=== PATIENT | female | born 1935 | race African-American/Black ===

== ENCOUNTER 2017-04-01 17:07 | Emergency (ER) | payer MEDICARE, OTHER ==
[~2017-04-01 17:07] MED LIST: BLOOMIS XX; CHLO25TA24 PO; KCL20 PO; Z.0.NO CURRENT MEDS; [UNRECOGNIZED DRUG - CODE] XX
[2017-04-01] MEDS ORDERED: DEXTROSE 50% IN WATER 50 ML SYRINGE IV ONE (17:08)
[2017-04-01] MEDS ORDERED: EPINEPHrine HCL (1:10,000) 1 MG/10 ML SYRINGE IV ONE (17:08)
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
== END 2017-04-01 23:42 | disposition expired ==
LOC: NEPE 17:07
DX: I46.9 Cardiac arrest, cause unspecified (principal); M19.90 Unspecified osteoarthritis, unspecified site; I42.9 Cardiomyopathy, unspecified; I25.10 Atherosclerotic heart disease of native coronary artery without angina pectoris; R56.9 Unspecified convulsions; Z79.899 Other long term (current) drug therapy; Z88.2 Allergy status to sulfonamides; Z88.0 Allergy status to penicillin
CPT/HCPCS: 31500; J0171